=== PATIENT | female | born 1965 | race Caucasian/White ===

== ENCOUNTER 2017-02-05 10:03 | Day surgery (SDC) | payer BC ==
[~2017-02-05 10:03] MED LIST: ASPIRIN EC81 M1 PO; GLUCOPHAGE1000 MG PO; GLUCOPHAGE500 MG PO; INDERAL10 MG PO; MIRAPEX0.125 MG PO; MULTI-DAY VITAM1 TAB PO; NAPROSYN500 MG PO; NUTRISOURCE FI1 EACH PO; PROAIR HFA8.5 GM INH; PROBIOTIC1 EAC1 PO; PROTONIX40 MG PO; QVAR8.7 G1 INH; SYNTHROID200 MC1 PO; VITAMIN B-1000 MCG/M IM; VITAMIN B-121000 MCG PO; VITAMIN D31000 UNIT PO; XANAX0.5 MG PO; ZOCOR40 MG PO
[2017-02-05 12:26] LABS: BASOPHILS 0.2 % (0-2); EOSINOPHILS 1.6 % (0-7); HEMATOCRIT 45.3 % (36.0-48.0); HEMOGLOBIN 13.9 g/dL (12-16); IMMATURE GRANULOCYTES 0.3 % (0-5); LYMPHOCYTES 25.1 % (15-50); MCH 26.2 pg (26.0-34.0); MCHC 30.7 g/dL (31.0-37.0); MCV 85.3 fL (80.0-100.0); MEAN PLATELET VOLUME 12.9 fL (7.4-10.4); NEUTROPHILS 66.8 % (40-80); PLATELET COUNT 126 10x3/uL (130-400); RBC 5.31 10x6/uL (4.00-5.40); RDW 14.8 % (11.5-14.5); WBC 8.8 10x3/uL (4.8-10.8)
[2017-02-05 12:30] LABS: CALC OSMOLALITY 281 mosm/kg (275-300); CALCIUM 9.3 mg/dL (8.5-10.1); CARBON DIOXIDE 33.5 mmol/L (21.0-32.0); CHLORIDE - SERUM 102 mmol/L (98-107); CREATININE - SERUM 0.8 mg/dL (0.6-1.3); POTASSIUM - SERUM 4.3 mmol/L (3.5-5.1); SODIUM 140 mmol/L (136-145); UREA NITROGEN 10 mg/dL (7-18); eGFR NON AFRICAN AMERICAN 80 mL/min (90-120)
[2017-02-05 12:32] LABS: GLUCOSE 164 mg/dL (74-106)
== END 2017-02-05 15:15 | disposition home or self-care (01) ==
LOC: D.OPS 10:03
PROVIDERS: Anesthesiology
DX: I85.00 Esophageal varices without bleeding (principal); K74.60 Unspecified cirrhosis of liver; R12 Heartburn; E11.9 Type 2 diabetes mellitus without complications; K21.9 Gastro-esophageal reflux disease without esophagitis; Z01.812 Encounter for preprocedural laboratory examination; K44.9 Diaphragmatic hernia without obstruction or gangrene; K31.819 Angiodysplasia of stomach and duodenum without bleeding; K76.6 Portal hypertension; K31.89 Other diseases of stomach and duodenum

== ENCOUNTER 2017-04-06 05:27 | Day surgery (SDC) | payer BC ==
[~2017-04-06] VITALS: Ht 162.6 cm; Wt 129.5 kg
[2017-04-06] MEDS ORDERED: QVAR8.7 G1 INH (06:31)
[2017-04-06 06:43] VITALS: BP 102/47; Ht 162.6 cm; Wt 129.5 kg
[2017-04-06 07:25] LABS: BASOPHILS 0.4 % (0-2); HEMATOCRIT 41.7 % (36.0-48.0); IMMATURE GRANULOCYTES 0.1 % (0-5); LYMPHOCYTES 25.1 % (15-50); MCH 26.2 pg (26.0-34.0); MCHC 31.2 g/dL (31.0-37.0); MCV 83.9 fL (80.0-100.0); MONOCYTES 6.3 % (2-11); NEUTROPHILS 66.1 % (40-80); PLATELET COUNT 112 10x3/uL (130-400); RBC 4.97 10x6/uL (4.00-5.40); RDW 15.4 % (11.5-14.5); WBC 7.4 10x3/uL (4.8-10.8)
[2017-04-06 07:34] LABS: APTT 27.1 SECONDS (22.8-39.4); INR 1.01 (0.85-1.17); PROTIME 13.2 SECONDS (11.6-15.0)
[2017-04-06 07:37] LABS: CALC OSMOLALITY 276 mosm/kg (275-300); CALCIUM 8.6 mg/dL (8.5-10.1); CARBON DIOXIDE 28.9 mmol/L (21.0-32.0); CHLORIDE - SERUM 100 mmol/L (98-107); CREATININE - SERUM 0.8 mg/dL (0.6-1.3); GLUCOSE 248 mg/dL (74-106); POTASSIUM - SERUM 3.9 mmol/L (3.5-5.1); SODIUM 135 mmol/L (136-145); UREA NITROGEN 9 mg/dL (7-18); eGFR NON AFRICAN AMERICAN 80 mL/min (90-120)
--- NOTE | 2017-04-06 07:50 | NUR ---
0750 BANDED VARCIES X1.
--- NOTE | 2017-04-06 08:21 | NUR ---
0815-RECD FROM LAB. DROWSY. AROUSES EASILY. VOISE HERE TO REPORT FINDINGS.
--- NOTE | 2017-04-06 09:03 | NUR ---
0902-D/C HOME VIA WHEELCHAIR WITH SPOUSE.
--- NOTE | 2017-04-06 15:57 | OP ---
PATIENT NAME: SINAN GARCÍA MEDICAL RECORD: [id number] :65 LOCATION:[facility] ADMISSION DATE: SURGEON: MARS MALDONADO DO DATE OF OPERATION: 04/06/2017 PROCEDURE: EGD with variceal band ligation and biopsy. SCOPE: Olympus video gastroscope. MEDICATIONS: Propofol 240 mg IV per anesthesia. ESTIMATED BLOOD LOSS: Minimal. INDICATIONS FOR PROCEDURE: Surveillance of esophageal varices. FINDINGS: Informed consent was given. The patient was made comfortable with the above medication. After reaching an adequate level of sedation by slow IV push, the patient was placed on her left side. The gastroscope was then advanced under direct visualization through the mouth down to the second portion of the duodenum. The upper third of the esophagus appeared normal. In the middle and distal thirds of the esophagus, there were grade III segmented esophageal varices without bleeding stigmata. A single band ligation was performed of a column of varices. This maneuver was successful. There was a small sliding hiatal hernia present at the GE junction involving the cardia as well as some very mild LA class A reflux induced esophagitis at the GE junction. Within the stomach, there was diffuse evidence of mild portal hypertensive gastropathy. In the antrum, there were findings consistent with gastric antral vascular ectasia. There were no signs of bleeding. The endoscope was advanced beyond the pylorus where a subepithelial lesion was identified in the duodenal bulb. A biopsy was taken of this site. The second portion of the duodenum appeared normal. As described above, the endoscope was then withdrawn from the patient and fitted with a speed band system by [employer]. The single varix as described above was then banded times 1. Scope was then withdrawn from the patient completely. The patient tolerated the procedure well and there were no complications. IMPRESSION: 1. Grade III esophageal varices, band ligation performed times 1. 2. Mild LA class A reflux induced esophagitis. 3. Small sliding hiatal hernia involving the cardia. 4. Gastric antral vascular ectasia (GAVE). 5. Mild portal hypertensive gastropathy. 6. Subepithelial lesion in the bulb of the duodenum, biopsies taken. PLAN AND RECOMMENDATIONS: 1. Discharge home when recovery parameters are met. 2. Continue current medications. 3. Change diet to a liquid diet times 48 hours, followed by soft diet times 48 hours, then a regular diet. 4. Repeat EGD in 4-6 weeks for continued surveillance of varices with banding as indicated. 5. Monitor gait as well as labs. If ever needed in the future, APC could be performed for any bleeding. 6. Consider further workup of subepithelial duodenal lesion once varices are eradicated. OPERATIVE REPORT [id number] SINAN GARCÍA TRANSINT:[id number] Voice Confirmation ID: [id number] DOCUMENT ID: [id number] MARS MALDONADO DO at 1557 CC: [id number] DICTATION DATE: 04/06/17 0810 TALEND DEVELOPER: 04/06/17 0944 [facility] 04/06/17 [facility] [address] [place] [address]
== END 2017-04-06 09:02 | disposition home or self-care (01) ==
LOC: D.OPS 05:27
PROVIDERS: Anesthesiology
DX: I85.00 Esophageal varices without bleeding (principal); K44.9 Diaphragmatic hernia without obstruction or gangrene; K21.0 Gastro-esophageal reflux disease with esophagitis; K31.9 Disease of stomach and duodenum, unspecified; K31.819 Angiodysplasia of stomach and duodenum without bleeding; Z01.812 Encounter for preprocedural laboratory examination; E11.9 Type 2 diabetes mellitus without complications; F17.200 Nicotine dependence, unspecified, uncomplicated; J44.9 Chronic obstructive pulmonary disease, unspecified; G47.30 Sleep apnea, unspecified

== ENCOUNTER 2017-06-01 05:34 | Day surgery (SDC) | payer BC ==
[~2017-06-01] VITALS: Ht 162.6 cm; Wt 133.2 kg
[2017-06-01] MEDS ORDERED: PROPRANOLOL HCL20 MG PO (06:35)
[2017-06-01] MEDS ORDERED: PROTONIX40 MG PO (06:36)
[2017-06-01 06:40] VITALS: BP 142/76; Ht 162.6 cm; Wt 133.2 kg
[2017-06-01 06:48] LABS: HEMATOCRIT 41.2 % (36.0-48.0); HEMOGLOBIN 12.7 g/dL (12-16); MCH 25.9 pg (26.0-34.0); MCHC 30.8 g/dL (31.0-37.0); MCV 84.1 fL (80.0-100.0); RDW 15.1 % (11.5-14.5); WBC 7.7 10x3/uL (4.8-10.8)
[2017-06-01 06:52] LABS: PLATELET COUNT 84 10x3/uL (130-400)
[2017-06-01 06:58] LABS: CALC OSMOLALITY 279 mosm/kg (275-300); CALCIUM 8.6 mg/dL (8.5-10.1); CARBON DIOXIDE 31.9 mmol/L (21.0-32.0); CHLORIDE - SERUM 100 mmol/L (98-107); CREATININE - SERUM 0.8 mg/dL (0.6-1.3); GLUCOSE 241 mg/dL (74-106); POTASSIUM - SERUM 3.8 mmol/L (3.5-5.1); SODIUM 137 mmol/L (136-145); UREA NITROGEN 7 mg/dL (7-18); eGFR NON AFRICAN AMERICAN 80 mL/min (90-120)
--- NOTE | 2017-06-02 07:48 | OP ---
PATIENT NAME: SINAN GARCÍA MEDICAL RECORD: [id number] :65 LOCATION:[facility] ADMISSION DATE: SURGEON: MARS MALDONADO DO DATE OF OPERATION: 06/01/2017 PROCEDURE: EGD. INDICATIONS: Surveillance of esophageal varices. Last upper endoscopy was 04/06/2017 with 1 band placed at that time. SCOPE: Olympus video gastroscope. MEDICATIONS: Propofol 150 mg IV per anesthesia. ESTIMATED BLOOD LOSS: Minimal. COMPLICATIONS: None. FINDINGS: Informed consent was given. The patient was made comfortable with the above medication. After reaching an adequate level of sedation by slow IV push, the patient was placed on her left side. The endoscope was then advanced under direct visualization through the mouth to the second portion of the duodenum. The upper and middle thirds of the esophagus appeared normal. As you approached the distal third of the esophagus down to the GE junction, there was evidence of grade I to grade II esophageal varices without bleeding stigmata. A scar was seen from the last banding site performed in March. No banding or interventions regarding the varices were performed today. At the GE junction, there was some evidence of LA class A reflux-induced esophagitis. The endoscope was advanced through the GE junction into the stomach and retroflexed to view the cardia, where a small sliding hiatal hernia was present. Throughout the entire stomach, there were patchy areas of erythema and granularity as well as a few areas of friable mucosa consistent with gastritis. In the antrum of the stomach, there was streaky erythema consistent with gastric antral vascular ectasia. There was no active bleeding or oozing of blood. The endoscope was advanced beyond the pylorus into the duodenum where the bulb and second portion of the duodenum appeared normal other than a single subepithelial lesion at the apex of the duodenal bulb. The lesion itself measured approximately 1.2 cm in size and smooth and around. Biopsies were taken at the last examination in March of this site, but they only showed epithelial mucosa without abnormalities. The scope was then withdrawn from the patient. The patient tolerated the procedure well and there were no complications. IMPRESSION: 1. Grade I to II esophageal varices in the distal third of the esophagus. 2. LA class A reflux-induced esophagitis. 3. Sliding hiatal hernia. 4. Gastritis. 5. Gastric antral vascular ectasia without bleeding. 6. Subepithelial lesion in the duodenum. PLAN AND RECOMMENDATIONS: 1. Discharge home when recovery parameters are met. 2. Continue current medications. 3. Gastroesophageal reflux disease diet and reflux precautions. 4. Repeat upper endoscopy in 1 year for surveillance of varices as well as the OPERATIVE REPORT [id number] SINAN GARCÍA subepithelial lesion in the duodenum. If symptoms warrant, an evaluation will be performed sooner than 1 year. 5. Consider APC ablation to areas of the gastric antral vascular ectasia if indicated. TRANSINT:[id number] Voice Confirmation ID: [id number] DOCUMENT ID: [id number] MARS MALDONADO DO at 0748 CC: [id number] DICTATION DATE: 06/01/17801 HEEL STAINER: 06/01/17917 [facility] 06/01/17 [facility] [address] [place] [address]
== END 2017-06-01 08:55 | disposition home or self-care (01) ==
LOC: D.OPS 05:34
PROVIDERS: Anesthesiology
DX: I85.00 Esophageal varices without bleeding (principal); K21.0 Gastro-esophageal reflux disease with esophagitis; K44.9 Diaphragmatic hernia without obstruction or gangrene; K29.70 Gastritis, unspecified, without bleeding; K31.819 Angiodysplasia of stomach and duodenum without bleeding; K31.9 Disease of stomach and duodenum, unspecified; Z01.812 Encounter for preprocedural laboratory examination

== ENCOUNTER → 2017-06-22 10:52 | Outpatient (CLI) | payer BC ==
[2017-06-01 06:40] VITALS: BMI 50.4
[~2017-06-22 10:52] MED LIST changes: +PROPRANOLOL HCL20 MG PO
[2017-06-22 11:32] LABS: CREATININE - SERUM 0.9 mg/dL (0.6-1.3)
== END | disposition home or self-care (01) ==
LOC: D.LAB 10:52 → D.MRI 11:30
PROVIDERS: Family Medicine
DX: R51 Headache (principal)

== ENCOUNTER 2018-01-07 18:33 | Emergency (ER) | payer BC ==
[2017-06-01 06:40] VITALS: BMI 50.4
== END 2018-01-07 21:04 | disposition home or self-care (01) ==
LOC: D.ER 18:33
DX: S06.0X0A Concussion without loss of consciousness, initial encounter (principal); W20.8XXA Other cause of strike by thrown, projected or falling object, initial encounter; Y93.89 Activity, other specified; Y92.512 Supermarket, store or market as the place of occurrence of the external cause; F17.200 Nicotine dependence, unspecified, uncomplicated; K21.9 Gastro-esophageal reflux disease without esophagitis; E11.9 Type 2 diabetes mellitus without complications

== ENCOUNTER → 2018-03-02 12:55 | Outpatient (CLI) | payer BC ==
[~2018-03-02] VITALS: Ht 162.6 cm; Wt 128.8 kg
[2018-03-02 14:14] VITALS: Ht 162.6 cm; Wt 128.8 kg
== END | disposition home or self-care (01) ==
LOC: D.FANS 12:55
DX: E11.9 Type 2 diabetes mellitus without complications (principal)

== ENCOUNTER 2018-05-24 05:39 | Day surgery (SDC) | payer BC ==
[~2018-05-24] VITALS: Ht 162.6 cm; Wt 130.5 kg
--- NOTE | ~2018-05-24 | OP ---
PATIENT NAME: SINAN GARCÍA MEDICAL RECORD: [id number] :65 LOCATION:[facility] ADMISSION DATE: SURGEON: MARS MALDONADO DO DATE OF OPERATION: 05/24/2018 PROCEDURE: EGD with biopsies and banding of esophageal varices. SCOPE: Olympus video gastroscope. MEDICATIONS: Propofol 230 mg IV per anesthesia. ESTIMATED BLOOD LOSS: Minimal. COMPLICATIONS: None. FINDINGS: Informed consent was given. The patient was made comfortable with the above medication. After reaching an adequate level of sedation by slow IV push, the patient was placed on her left side. The endoscope was advanced under direct visualization through the mouth to the second portion of the duodenum. The upper and middle thirds of the esophagus appeared normal. In the distal third of the esophagus, there were grade II to III esophageal varices without bleeding stigmata. Due to their size, a single band was placed over the largest varix. This was done using a [employer] banding apparatus and the maneuver was successful. At the GE junction, there was evidence of LA class A reflux-induced esophagitis. The endoscope was advanced beyond the GE junction and retroflexed to view the cardia, where a small sliding hiatal hernia was present. Within the fundus and body of the stomach, there was a moderate amount of liquid with some solid food material as well. As much of this as possible was suctioned out of the stomach. The stomach itself had patchy erythema and granularity consistent with gastritis. In the prepyloric region, there were a few very superficial ulcerations, which were not bleeding. Random biopsies were taken to submit for histopathology and to rule out the presence of H. pylori. There was also a gastric nodule in the antrum, which was biopsied. Appearances were consistent with a reactive tissue from acid exposure. The endoscope was advanced beyond the pylorus into the duodenum where the previously identified subepithelial lesion is still present. It appears unchanged in size and characteristics. The endoscope was then withdrawn from the patient. It was noted upon withdrawal that the patient has a nodule versus a potential cystic lesion on her arytenoid cartilage. This may need follow up in the future. The endoscope was completely withdrawn from the patient. The patient tolerated the procedure well and there were no complications. IMPRESSION: 1. Grade II to grade III esophageal varices in the distal third of the esophagus status post banding times 1. 2. LA class A reflux-induced esophagitis. 3. Small sliding hiatal hernia. 4. Patchy gastritis with prepyloric ulcerations. 5. Gastric nodule, biopsies pending. It is felt to be reactive. 6. Subepithelial lesion in the duodenum. 7. Incidental finding of an arytenoid cartilage nodule. 8. Probable gastroparesis based on the findings of a significant amount of fluid and food in the stomach on today's endoscopy. PLAN AND RECOMMENDATIONS: OPERATIVE REPORT [id number] SINAN GARCÍA 1. Discharge home when recovery parameters are met. 2. Follow up biopsy specimen results. 3. Continue current medications including PPI daily and propranolol daily. 4. Full liquid diet times 24 hours followed by a soft diet times 48 hours, then regular based on the band that was placed on today's examination. 5. Consider gastric emptying scan to rule out gastroparesis. 6. Repeat EGD in 8-12 weeks to reevaluate gastric ulcers and consider rebanding if indicated. 7. May need a referral to ENT for evaluation of arytenoid nodule. TRANSINT:[id number] Voice Confirmation ID: [id number] DOCUMENT ID: [id number] MARS MALDONADO DO at 1351 CC: [id number] DICTATION DATE: 05/24/18811 TALENT SOURCER: 05/24/[address] [facility] 05/24/18 [facility] [address] [place] [address]
[2018-05-24 06:03] LABS: HEMATOCRIT 42.4 % (36.0-48.0); HEMOGLOBIN 13.5 g/dL (12-16); MCHC 31.8 g/dL (31.0-37.0); MCV 84.8 fL (80.0-100.0); MEAN PLATELET VOLUME 12.7 fL (7.4-10.4); RDW 15.4 % (11.5-14.5); WBC 6.8 10x3/uL (4.8-10.8)
[2018-05-24 06:22] LABS: APTT 27.1 SECONDS (22.8-39.4); CALC OSMOLALITY 282 mosm/kg (275-300); CALCIUM 8.6 mg/dL (8.5-10.1); CARBON DIOXIDE 30.3 mmol/L (21.0-32.0); CHLORIDE - SERUM 102 mmol/L (98-107); CREATININE - SERUM 0.7 mg/dL (0.6-1.3); GLUCOSE 198 mg/dL (74-106); INR 1.01 (0.85-1.17); POTASSIUM - SERUM 3.8 mmol/L (3.5-5.1); PROTIME 12.9 SECONDS (11.6-15.0); SODIUM 140 mmol/L (136-145); UREA NITROGEN 8 mg/dL (7-18); eGFR NON AFRICAN AMERICAN > 90 mL/min (90-120)
[2018-05-24] MEDS ORDERED: GLUCOPHAGE1000 MG PO (06:34)
[2018-05-24] MEDS ORDERED: GLUCOPHAGE500 MG (06:35)
[2018-05-24] MEDS ORDERED: PROTONIX40 MG PO (06:38)
[2018-05-24] MEDS ORDERED: FLUTICASONE PRO16 GM (06:39)
[2018-05-24] MEDS ORDERED: INDERAL10 MG PO (06:40)
[2018-05-24 06:49] VITALS: Ht 162.6 cm; Wt 130.5 kg
== END 2018-05-24 09:25 | disposition home or self-care (01) ==
LOC: D.OPS 05:39
PROVIDERS: Anesthesiology
DX: I85.00 Esophageal varices without bleeding (principal); K21.0 Gastro-esophageal reflux disease with esophagitis; K44.9 Diaphragmatic hernia without obstruction or gangrene; K29.50 Unspecified chronic gastritis without bleeding; K25.9 Gastric ulcer, unspecified as acute or chronic, without hemorrhage or perforation; K31.7 Polyp of stomach and duodenum; J38.7 Other diseases of larynx; Z01.812 Encounter for preprocedural laboratory examination

== ENCOUNTER → 2018-06-01 11:24 | Outpatient (CLI) | payer BC ==
[2018-05-24 06:49] VITALS: BMI 49.4
[~2018-06-01 11:24] MED LIST changes: +FLUTICASONE PRO16 GM; +GLUCOPHAGE500 MG
== END | disposition home or self-care (01) ==
LOC: D.NM 11:24
DX: R11.0 Nausea (principal)

== ENCOUNTER 2018-08-30 05:39 | Day surgery (SDC) | payer BC ==
[~2018-08-30] VITALS: Ht 162.6 cm; Wt 124.5 kg
--- NOTE | ~2018-08-30 | OP ---
PATIENT NAME: SINAN GARCÍA MEDICAL RECORD: [id number] :65 LOCATION:[facility] ADMISSION DATE: SURGEON: MARS MALDONADO DO DATE OF OPERATION: 08/30/2018 PROCEDURE: EGD with biopsies. INDICATIONS FOR PROCEDURE: History of esophageal varices as well as a history of gastric polyp with focal low-grade atypia. SCOPE: Olympus video gastroscope. MEDICATIONS: Propofol 180 mg IV per anesthesia. ESTIMATED BLOOD LOSS: Minimal. COMPLICATIONS: None. FINDINGS: Informed consent was given. The patient was made comfortable with the above medication. After reaching an adequate level of sedation by slow IV push, the patient was placed on her left side. The endoscope was advanced under direct visualization through the mouth to the second portion of the duodenum. The upper and middle thirds of the esophagus appeared normal. In the distal third of the esophagus, there was grade I to grade II esophageal varices without bleeding stigmata. No bands were placed on today's examination. At the GE junction, there was mild LA class A reflux-induced esophagitis. The endoscope was advanced beyond the GE junction into the stomach and retroflexed to view the cardia, where a small sliding hiatal hernia was present. Throughout the stomach, there was an atrophic-appearing mucosa and congestion and erythema consistent with portal hypertensive gastropathy. There were some patchy gastritis in the antrum and prepyloric regions. The previously identified nodule was again seen. This is still felt to be a reactive nodule. Cold forceps biopsies were again taken of this nodule to submit for histopathology. The endoscope was advanced beyond the pylorus into the duodenum. In the duodenal bulb, there was a subepithelial lesion measuring approximately 1.2-1.5 cm in size. Biopsies were taken of this nodule, but they will likely be superficial mucosal biopsies. The endoscope was advanced down to the second portion of the duodenum, which appeared normal. The endoscope was then withdrawn from the patient. The patient tolerated the procedure well and there were no complications. IMPRESSION: 1. Grade I to grade II esophageal varices without bleeding stigmata. 2. LA class A reflux-induced esophagitis. 3. Small sliding hiatal hernia. 4. Gastritis. 5. Portal hypertensive gastropathy. 6. Single gastric nodule located in the antrum, which measured approximately 8-10 mm in diameter. Biopsies taken with cold forceps. 7. Subepithelial nodule in the duodenum. Biopsies also taken of this lesion. PLAN AND RECOMMENDATIONS: 1. Discharge home when recovery parameters are met. 2. GERD diet and reflux precautions. 3. Continue current medications. OPERATIVE REPORT [id number] SINAN GARCÍA 4. Follow up biopsy results. 5. If low-grade atypia persist in the nodule biopsies, this may need to be resected with a snare in the future endoscopy. 6. Consider referral for EUS evaluation of duodenal subepithelial nodule. This will likely be followed endoscopically, one more procedure prior to referral if still indicated. 7. Repeat EGD in 6-12 months for variceal surveillance and reevaluation of gastric nodule and duodenal subepithelial nodule. TRANSINT:[id number] Voice Confirmation ID: [id number] DOCUMENT ID: [id number] MARS MALDONADO DO at 1426 CC: [id number] DICTATION DATE: 08/30/18 0758 PIPELINE SYSTEMS OPERATOR: 08/30/18 0814 [facility] 08/30/[address] [address]
[2018-08-30 06:01] LABS: BASOPHILS 0.3 % (0-2); EOSINOPHILS 1.8 % (0-7); HEMATOCRIT 39.9 % (36.0-48.0); HEMOGLOBIN 12.6 g/dL (12-16); IMMATURE GRANULOCYTES 0.1 % (0-5); LYMPHOCYTES 19.2 % (15-50); MCH 26.4 pg (26.0-34.0); MCHC 31.6 g/dL (31.0-37.0); MCV 83.6 fL (80.0-100.0); MEAN PLATELET VOLUME 12.3 fL (7.4-10.4); MONOCYTES 6.9 % (2-11); NEUTROPHILS 71.7 % (40-80); PLATELET COUNT 102 10x3/uL (130-400); RBC 4.77 10x6/uL (4.00-5.40); RDW 14.8 % (11.5-14.5)
[2018-08-30 06:15] LABS: CALC OSMOLALITY 281 mosm/kg (275-300); CALCIUM 8.6 mg/dL (8.5-10.1); CARBON DIOXIDE 31.4 mmol/L (21.0-32.0); CHLORIDE - SERUM 101 mmol/L (98-107); CREATININE - SERUM 0.7 mg/dL (0.6-1.3); POTASSIUM - SERUM 3.6 mmol/L (3.5-5.1); SODIUM 137 mmol/L (136-145); UREA NITROGEN 7 mg/dL (7-18); eGFR NON AFRICAN AMERICAN > 90 mL/min (90-120)
[2018-08-30 06:16] LABS: GLUCOSE 271 mg/dL (74-106)
[2018-08-30] MEDS ORDERED: JANUVIA100 MG PO (06:27)
[2018-08-30] MEDS ORDERED: CEFUROXIME500 MG PO (06:27)
[2018-08-30 06:36] VITALS: BP 114/78; Ht 162.6 cm; Wt 124.5 kg
== END 2018-08-30 08:53 | disposition home or self-care (01) ==
LOC: D.OPS 05:39
PROVIDERS: Anesthesiology
DX: K76.6 Portal hypertension (principal); K31.89 Other diseases of stomach and duodenum; I85.10 Secondary esophageal varices without bleeding; K21.0 Gastro-esophageal reflux disease with esophagitis; K44.9 Diaphragmatic hernia without obstruction or gangrene; K29.50 Unspecified chronic gastritis without bleeding; Z01.812 Encounter for preprocedural laboratory examination

== ENCOUNTER → 2019-07-06 08:23 | Outpatient (CLI) | payer BC ==
[2018-08-30 06:36] VITALS: BMI 47.1
[~2019-07-06 08:23] MED LIST changes: +BASAGLAR K100 UNIT/1 SC; +CEFUROXIME500 MG PO; +CHRONULAC30 ML PO; +CYANOCOBAL1000 MCG/4 SC; +CYCLOBENZAPRINE10 MG PO; +JANUVIA100 MG PO; +XIFAXAN550 MG PO
--- NOTE | 2019-07-08 12:08 | ST ---
PATIENT:SINAN GARCÍA MEDICAL RECORD: [id number] SEX: F LOCATION:[facility] ORDER #: ADMISSION DATE: 07/06/19 AGE OF PATIENT: 53 REFERRING PHYSICIAN: INTERPRETING PHYSICIAN: MELODY DE LEON MD DATE OF SERVICE: 07/06/2019 INDICATIONS: Angina, shortness of breath, hyperlipidemia. She was exercised on standard Lexiscan protocol with 27 mCi of sestamibi injected at peak stress, 9 mCi used previously for rest images. FINDINGS: Gated SPECT reveals preserved ejection fraction of 60%. However, there is decreased thickening and brightening throughout anterior segments. SPECT imaging: Cardiolite was used as myocardial perfusion agent. There is a large fixed perfusion defect anteriorly and apically compatible with previous anteroapical myocardial infarction. No evidence of reversible ischemia. The remaining segments are with homogeneous uptake at rest and stress. OVERALL IMPRESSION: This is an abnormal nuclear stress test suggestive of a previous anteroapical myocardial infarction, but no ongoing ischemic burden on the current exam with a preserved ejection fraction of 60%. TRANSINT:[id number] Voice Confirmation ID: [id number] DOCUMENT ID: [id number] MELODY DE LEON MD at 1208 CC: SHANNAN LAW [id number] DICTATION DATE: 07/07/19 1329 DAMPER FITTER: 07/08/[address] [facility] CLI 07/06/[address] [address]
== END | disposition home or self-care (01) ==
LOC: D.HCCARDIO 08:23
PROVIDERS: ATTEND Internal Medicine Interventional Cardiology
DX: I20.9 Angina pectoris, unspecified (principal); E78.5 Hyperlipidemia, unspecified; R06.00 Dyspnea, unspecified

== ENCOUNTER 2019-07-13 12:01 | Day surgery (SDC) | payer BC ==
[~2019-07-13] VITALS: Ht 162.6 cm; Wt 124.1 kg
[~2019-07-13 12:01] MED LIST changes: -BASAGLAR K100 UNIT/1 SC; -CHRONULAC30 ML PO; -CYANOCOBAL1000 MCG/4 SC; -CYCLOBENZAPRINE10 MG PO; -XIFAXAN550 MG PO
[2019-07-13 12:23] LABS: HEMATOCRIT 37.3 % (36.0-48.0); HEMOGLOBIN 11.3 g/dL (12-16); MCH 24.6 pg (26.0-34.0); MCHC 30.3 g/dL (31.0-37.0); MCV 81.1 fL (80.0-100.0); MEAN PLATELET VOLUME 11.2 fL (7.4-10.4); RBC 4.6 10x6/uL (4.00-5.40); RDW 16.5 % (11.5-14.5); WBC 6.3 10x3/uL (4.8-10.8)
[2019-07-13 12:36] LABS: CALC OSMOLALITY 281 mosm/kg (275-300); CALCIUM 8.4 mg/dL (8.5-10.1); CARBON DIOXIDE 32.9 mmol/L (21.0-32.0); CHLORIDE - SERUM 104 mmol/L (98-107); CREATININE - SERUM 0.7 mg/dL (0.6-1.3); SODIUM 142 mmol/L (136-145); UREA NITROGEN 7 mg/dL (7-18); eGFR NON AFRICAN AMERICAN > 90 mL/min (90-120)
[2019-07-13] MEDS ORDERED: XIFAXAN550 MG PO (12:37)
[2019-07-13] MEDS ORDERED: CYCLOBENZAPRINE10 MG PO (12:38)
[2019-07-13] MEDS ORDERED: CYANOCOBAL1000 MCG/4 SC (12:38)
[2019-07-13] MEDS ORDERED: BASAGLAR K100 UNIT/1 SC (12:39)
[2019-07-13] MEDS ORDERED: CHRONULAC30 ML PO (12:39)
[2019-07-13 12:44] VITALS: BP 148/55; Ht 162.6 cm; Wt 124.1 kg
[2019-07-13 12:44] LABS: GLUCOSE 123 mg/dL (74-106)
--- NOTE | 2019-07-13 14:24 | NUR ---
1424 WATER AND APPLE JUICE SERVED.
--- NOTE | 2019-07-13 14:26 | NUR ---
1429 DR. JOEL VELASQUEZ.
--- NOTE | 2019-07-13 15:07 | NUR ---
1505 RX OBTAINED. PT STATES SHE WILL TAKE A DOSE NOW PRIOR TO DISCHARGE.
--- NOTE | 2019-07-14 16:31 | OP ---
PATIENT NAME: SINAN GARCÍA MEDICAL RECORD: [id number] :65 LOCATION:[facility] ADMISSION DATE: SURGEON: MARS MALDONADO DO DATE OF OPERATION: 07/13/2019 PROCEDURE: EGD with variceal banding and biopsy. INDICATIONS FOR PROCEDURE: Epigastric pain, nausea, history of esophageal varices, and cirrhosis. SCOPE: Olympus video gastroscope. MEDICATIONS: Propofol 350 mg IV per anesthesia. ESTIMATED BLOOD LOSS: Minimal. COMPLICATIONS: None. FINDINGS: Informed consent was given. The patient was made comfortable with the above medication. After reaching an adequate level of sedation by slow IV push, the patient was placed on her left side. The endoscope was advanced under direct visualization through the mouth to the second portion of the duodenum. The esophagus where her usual varices which appeared to be slightly larger on this examination from previous. Today, they were grade III with some bleeding stigmata consisting of mccall red spots. At the GE junction, there was evidence of LA class A reflux-induced esophagitis. The endoscope was advanced beyond the GE junction into the stomach and retroflexed to view the cardia and fundus. There were no obvious fundal varices present. Throughout the entire stomach, there was some erythema and granularity consistent with mild gastritis. A single biopsy was taken from the antrum to submit for histopathology and to rule out the presence of H. pylori. The gastric nodule which is usually located in the antrum was again present. It measured approximately 8-10 mm in diameter. No biopsies were taken on this examination as this has been done previously and has been found to be benign. The endoscope was advanced beyond the pylorus and the duodenum. The mucosa of the duodenum appeared normal. The previously identified epithelial lesion appeared to be in the transition from the first to second portion of the duodenum and was difficult to fully examine on today's examination in comparison to the previous exam. Biopsies were taken in the last examination and were superficial to the obvious subepithelial tissue. No biopsies were taken today. The patient is coagulopathy related to her liver disease and this makes biopsies of all tissue difficult as she does bleed extremely easy. The endoscope was withdrawn from the patient. The [employer] speed band 7 shooter was placed over the endoscope and the endoscope with the bands were advanced back down into the distal esophagus through the mouth under direct visualization. Three bands were placed on the largest varices where stigmata were evident. The maneuver was successful. The endoscope was then withdrawn from the patient. The patient tolerated the procedure well and there were no immediate complications. IMPRESSION: 1. Grade III esophageal varices with bleeding stigmata consisting of mccall red spots. Three bands were placed during this examination. 2. LA class A reflux-induced esophagitis. 3. Diffuse mild gastritis. 4. Single gastric nodule located in the antrum, which has been previously OPERATIVE REPORT [id number] SINAN GARCÍA identified and biopsied and been found to be benign. 5. Subepithelial nodule was partially visualized in the duodenum. The surrounding tissue, did not appear to be dysplastic or malignant. PLAN AND RECOMMENDATIONS: 1. Discharge home when recovery parameters are met. 2. Follow up biopsy specimen results. 3. Repeat EGD in 4-6 weeks for continued banding of esophageal varices as indicated. 4. Continue GERD diet and reflux precautions. The patient will need to be on liquid diet times 48 hours followed by soft diet times 48 hours, then a regular diet. 5. Continue current medications. 6. We will reevaluate antral nodule and subepithelial duodenal nodule on this endoscopy. I have considered referral for consideration of [facility] in the past and this will be continued consideration. That being said, as discussed the above with the patient is high risk for both endoscopy due to her severe sleep apnea as well as her high risk of bleeding due to coagulopathy and cirrhosis. This risk would also be even higher with endoscopic ultrasound when visualization is limited due to the ultrasound mode being used. TRANSINT:[id number] Voice Confirmation ID: [id number] DOCUMENT ID: [id number] MARS MALDONADO DO at 1631 CC: [id number] DICTATION DATE: 07/13/19 1410 RECOVERY ADVOCATE: 07/13/19 2253 [facility] 07/13/19 [address] [place] [address]
== END 2019-07-13 15:30 | disposition home or self-care (01) ==
LOC: D.OPS 12:01
PROVIDERS: Anesthesiology; ATTEND Internal Medicine Gastroenterology
DX: I85.01 Esophageal varices with bleeding (principal); K74.60 Unspecified cirrhosis of liver; K21.0 Gastro-esophageal reflux disease with esophagitis; K29.70 Gastritis, unspecified, without bleeding

== ENCOUNTER 2019-09-19 12:15 | Day surgery (SDC) | payer BC ==
[~2019-09-19] VITALS: Ht 162.6 cm; Wt 126.4 kg
[2019-09-19 12:14] LABS: HEMATOCRIT 46.6 % (36.0-48.0); HEMOGLOBIN 15.3 g/dL (12-16); MCH 29.5 pg (26.0-34.0); MCHC 32.8 g/dL (31.0-37.0); MCV 89.8 fL (80.0-100.0); MEAN PLATELET VOLUME 11.2 fL (7.4-10.4); RBC 5.19 10x6/uL (4.00-5.40); RDW 18.3 % (11.5-14.5); WBC 7.3 10x3/uL (4.8-10.8)
[~2019-09-19 12:15] MED LIST changes: +BASAGLAR K100 UNIT/1 SC; +CHRONULAC30 ML PO; +CYANOCOBAL1000 MCG/4 SC; +CYCLOBENZAPRINE10 MG PO; +XIFAXAN550 MG PO
[2019-09-19 12:27] LABS: HCG SERUM NEGATIVE (NEGATIVE)
[2019-09-19 12:29] LABS: CALC OSMOLALITY 279 mosm/kg (275-300); CALCIUM 9.2 mg/dL (8.5-10.1); CARBON DIOXIDE 30.5 mmol/L (21.0-32.0); CHLORIDE - SERUM 103 mmol/L (98-107); CREATININE - SERUM 0.7 mg/dL (0.6-1.3); GLUCOSE 139 mg/dL (74-106); POTASSIUM - SERUM 4.4 mmol/L (3.5-5.1); SODIUM 140 mmol/L (136-145); UREA NITROGEN 9 mg/dL (7-18); eGFR NON AFRICAN AMERICAN > 90 mL/min (90-120)
[2019-09-19 12:49] VITALS: BP 112/71; Ht 162.6 cm; Wt 126.4 kg
--- NOTE | 2019-09-19 14:17 | NUR ---
PT DC INSTRUCTIONS REVIEWED AT THIS TIME, PT VERBALIZES UNDERSTANDING. PT IV REMOVED AT THIS TIME, INTACT, NO REDNESS OF SWELLING NOTED AT SITE.
--- NOTE | 2019-09-19 14:19 | NUR ---
PT LEAVING OPS AT THIS TIME VIA WC, NAD NOTED.
--- NOTE | 2019-09-20 08:53 | OP ---
PATIENT NAME: SINAN GARCÍA MEDICAL RECORD: [id number] :65 LOCATION:[facility] ADMISSION DATE: SURGEON: MARS MALDONADO DO DATE OF OPERATION: 09/19/2019 PROCEDURE: EGD for surveillance of esophageal varices. The patient's last EGD was performed on 07/13/2019. At that time, three bands were placed. SCOPE: Olympus video gastroscope. MEDICATIONS: Propofol 150 mg IV per anesthesia. ESTIMATED BLOOD LOSS: None. COMPLICATIONS: None. FINDINGS: Informed consent was given. The patient was made comfortable with the above medication. After reaching an adequate level of sedation by slow IV push, the patient was placed on her left side. The endoscope was advanced under direct visualization through the mouth to the second portion of the duodenum. In the esophagus, there were grade II esophageal varices which appeared improved from previous examination when bands were placed. There were no bleeding stigmata present. There was evidence of previous banding. No bands were placed on today's examination. At the GE junction, there was evidence of LA class A reflux-induced esophagitis. The endoscope was advanced beyond the GE junction into the stomach and retroflexed to view the cardia and fundus. There were no obvious fundal varices present. Throughout the entire stomach, there was some erythema and granularity consistent with mild gastritis. There was a single gastric nodule located in the antrum, which has been identified on previous examinations. It measured approximately 8-10 mm in diameter and appeared unchanged from previous exams. No biopsies were taken of the antrum or of the nodule today as they have previously been taken and found to be benign. The endoscope was advanced beyond the pylorus into the duodenum. The mucosa of the duodenum appeared normal. The previously identified subepithelial lesion was present and located in the transition from the first to second portion of the duodenum. Biopsies had been taken in the past, but were too superficial to obtain any subepithelial tissue. No biopsies were taken on today's examination. The endoscope was withdrawn from the patient. The patient tolerated the procedure well and there were no immediate complications. IMPRESSION: 1. Grade II esophageal varices without bleeding stigmata. No bands were placed on today's examination. 2. LA class A reflux-induced esophagitis. 3. Diffuse mild gastritis. 4. Single gastric nodule located in the antrum, which was previously been biopsied and found to be benign. It appears unchanged from previous examinations. 5. A single subepithelial nodule located in the duodenum in the transition from the first to second portion. Mucosal biopsies have been taken previously and have shown benign tissue. PLAN AND RECOMMENDATIONS: 1. Discharge home when recovery parameters are met. 2. Continue current diet. OPERATIVE REPORT [id number] SINAN GARCÍA 3. Continue current medications. 4. Maintain follow up as scheduled in the outpatient GI clinic. 5. We will need a repeat EGD in 1 year for esophageal varices surveillance. 6. The patient's MELD score is currently 7. 7. We will continue to monitor the overall liver condition and may refer to [facility] hepatology if indicated in the future. TRANSINT:[id number] Voice Confirmation ID: [id number] DOCUMENT ID: [id number] MARS MALDONADO DO at 0853 CC: [id number] DICTATION DATE: 09/19/19 1339 ASSISTANT PROFESSOR OF [employer]INAL JUSTICE: 09/19/19 1612 [facility] 09/19/19 [id number] [place] [address]
== END 2019-09-19 14:20 | disposition home or self-care (01) ==
LOC: D.OPS 12:15
PROVIDERS: Anesthesiology; ATTEND Internal Medicine Gastroenterology
DX: K74.60 Unspecified cirrhosis of liver (principal); K57.30 Diverticulosis of large intestine without perforation or abscess without bleeding; Z86.010 Personal history of colon polyps; K76.0 Fatty (change of) liver, not elsewhere classified; R11.0 Nausea; R10.13 Epigastric pain; R19.7 Diarrhea, unspecified

== ENCOUNTER → 2020-02-16 12:13 | Outpatient (CLI) | payer BC ==
[2019-09-19 12:49] VITALS: BMI 47.8
== END | disposition home or self-care (01) ==
LOC: D.HCCECHO 12:13
PROVIDERS: ATTEND Internal Medicine Cardiovascular Disease
DX: I10 Essential (primary) hypertension (principal)

== ENCOUNTER 2020-12-07 10:24 | Day surgery (SDC) | payer OTHER ==
[~2020-12-07] VITALS: Ht 162.6 cm; Wt 125.5 kg
--- NOTE | ~2020-12-07 | OP ---
PATIENT NAME: SINAN GARCÍA MEDICAL RECORD: [id number] :65 LOCATION:[facility] ADMISSION DATE: SURGEON: ERIKA CREWS MD DATE OF OPERATION: 12/07/2020 PROCEDURE: Upper endoscopy. PREOPERATIVE DIAGNOSIS: History of cirrhosis with previous banding of esophageal varices. Today, she is here for surveillance of varices. MEDICATIONS: Propofol per anesthesia. Upper endoscopy was performed. The endoscope was advanced through the mouth and advanced to the second part of the duodenum. The proximal and mid esophagus were normal. In the distal esophagus was a grade III varix. This was banded with 1 band placed successfully. The remainder of the esophagus was normal. There were other varices; however, these were small grade I and grade II. In the gastric body was erythema consistent with gastritis. Random gastric biopsies were taken. In the duodenal bulb was a large 3 cm polyp. This could not be removed through the scope due to size and vascularity. A small biopsy was taken at the edge of this polyp. FINAL DIAGNOSES: 1. Grade III esophageal varix, status post banding times 1. 2. Evidence of previous smaller esophageal varices, gastritis, and large duodenal polyp. PLAN: Check histology results. Continue GI followup. I will schedule this patient for EUS at [facility] to evaluate for possible resection of this large duodenal polyp. TRANSINT:[id number] Voice Confirmation ID: [id number] DOCUMENT ID: [id number] ERIKA CREWS MD CC: [id number] DICTATION DATE: 12/07/20 1250 SAUSAGE CANNER: 12/07/20 2318 [facility] 12/07/20 [place] [id number] [place] [id number]
[2020-12-07 11:01] LABS: BASOPHILS 0.4 % (0-2); EOSINOPHILS 2.5 % (0-7); HEMATOCRIT 45.5 % (36.0-48.0); HEMOGLOBIN 14.9 g/dL (12-16); IMMATURE GRANULOCYTES 0.1 % (0-5); LYMPHOCYTE ABS# 1.62 10x3/uL (1.18-3.74); MCH 28.9 pg (26.0-34.0); MCHC 32.7 g/dL (31.0-37.0); MCV 88.2 fL (80.0-100.0); MEAN PLATELET VOLUME 12.1 fL (7.4-10.4); MONOCYTES 6.9 % (2-11); NEUTROPHIL ABS# 6.05 10x3/uL (1.56-6.13); NEUTROPHILS 71.1 % (40-80); PLATELET COUNT 105 10x3/uL (130-400); RBC 5.16 10x6/uL (4.00-5.40); RDW 14.3 % (11.5-14.5); WBC 8.5 10x3/uL (4.8-10.8)
[2020-12-07 11:03] LABS: APTT 28.3 SECONDS (22.8-39.4); INR 1.16 (0.85-1.17); PROTIME 13.7 SECONDS (11.6-15.0)
[2020-12-07 11:05] LABS: ALBUMIN 3.1 g/dL (3.4-5.0); ALKALINE PHOSPHATASE 148 U/L (30-120); ALT (SGPT) 30 U/L (10-68); BILIRUBIN - TOTAL 1.55 mg/dL (0.2-1.3); CALC OSMOLALITY 278 mosm/kg (275-300); CALCIUM 9.2 mg/dL (8.5-10.1); CARBON DIOXIDE 34.2 mmol/L (21.0-32.0); CHLORIDE - SERUM 101 mmol/L (98-107); CREATININE - SERUM 0.8 mg/dL (0.6-1.3); GLUCOSE 183 mg/dL (74-106); POTASSIUM - SERUM 4.3 mmol/L (3.5-5.1); PROTEIN - SERUM 7.3 g/dL (6.4-8.2); SODIUM 138 mmol/L (136-145); UREA NITROGEN 6 mg/dL (7-18); eGFR NON AFRICAN AMERICAN 79 mL/min (90-120)
[2020-12-07 11:27] VITALS: BP 138/89; Ht 162.6 cm; Wt 125.5 kg
--- NOTE | 2020-12-07 13:26 | NUR ---
DC INSTRUCTIONS GIVEN TO PT. STATES UNDERSTANDING. DC'D IV CATH FULLY INTACT. WILL DC SHORTLY.
--- NOTE | 2020-12-07 13:29 | NUR ---
PT LEFT UNIT VIA WC AT 1340
== END 2020-12-07 13:40 | disposition home or self-care (01) ==
LOC: D.OPS 10:24
PROVIDERS: Anesthesiology; ATTEND Internal Medicine Gastroenterology
DX: I85.00 Esophageal varices without bleeding (principal); R11.0 Nausea; K31.7 Polyp of stomach and duodenum; K44.9 Diaphragmatic hernia without obstruction or gangrene; K74.00 Hepatic fibrosis, unspecified; K76.0 Fatty (change of) liver, not elsewhere classified; Z86.010 Personal history of colon polyps; K29.70 Gastritis, unspecified, without bleeding

== ENCOUNTER 2021-01-11 10:12 | Day surgery (SDC) | payer OTHER ==
[~2021-01-11] VITALS: Ht 162.6 cm; Wt 133.2 kg
--- NOTE | ~2021-01-11 | OP ---
PATIENT NAME: SINAN GARCÍA MEDICAL RECORD: [id number] :65 LOCATION:[facility] ADMISSION DATE: SURGEON: ERIKA CREWS MD DATE OF OPERATION: 01/11/2021 PREOPERATIVE DIAGNOSIS: History of colon polyps. MEDICATION: Propofol per anesthesia. Colonoscopy was performed. The colonoscope was inserted through the rectum and advanced to the cecum, identified by the ileocecal valve and the appendiceal orifice. There were multiple polyps. In the ascending colon polyp was a 5 mm polyp, this was removed with a combination of hot snare polypectomy and cold biopsy forceps. In the sigmoid colon were 2 polyps, these were removed with hot snare polypectomy and cold biopsy forceps respectively. In the sigmoid colon was a small patchy erythema. This was biopsied. There were also a few sigmoid diverticula. The patient tolerated the procedure well. There were no immediate complications. FINAL DIAGNOSES: Multiple colon polyps that were removed as outlined above, a few sigmoid diverticula. PLAN: Check histology results, advance diet. Return to GI office. TRANSINT:[id number] Voice Confirmation ID: [id number] DOCUMENT ID: [id number] ERIKA CREWS MD CC: [id number] DICTATION DATE: 01/11/21 1525 RAILW[address] SHUNTER: 01/12/21 0007 [facility] 01/11/21 [place] [id number] [place] [address]
[2021-01-11 10:42] LABS: BASOPHILS 0.3 % (0-2); EOSINOPHILS 1.7 % (0-7); HEMATOCRIT 47.8 % (36.0-48.0); HEMOGLOBIN 15.6 g/dL (12-16); IMMATURE GRANULOCYTES 0.1 % (0-5); LYMPHOCYTE ABS# 1.21 10x3/uL (1.18-3.74); MCHC 32.6 g/dL (31.0-37.0); MCV 88.8 fL (80.0-100.0); MEAN PLATELET VOLUME 11.9 fL (7.4-10.4); NEUTROPHIL ABS# 5.64 10x3/uL (1.56-6.13); NEUTROPHILS 74.9 % (40-80); PLATELET COUNT 100 10x3/uL (130-400); RBC 5.38 10x6/uL (4.00-5.40); RDW 14.4 % (11.5-14.5); WBC 7.5 10x3/uL (4.8-10.8)
[2021-01-11 10:51] LABS: CALC OSMOLALITY 281 mosm/kg (275-300); CALCIUM 9.1 mg/dL (8.5-10.1); CARBON DIOXIDE 32.7 mmol/L (21.0-32.0); CHLORIDE - SERUM 101 mmol/L (98-107); CREATININE - SERUM 0.7 mg/dL (0.6-1.3); GLUCOSE 214 mg/dL (74-106); SODIUM 139 mmol/L (136-145); UREA NITROGEN 6 mg/dL (7-18); eGFR NON AFRICAN AMERICAN > 90 mL/min (90-120)
[2021-01-11 13:04] VITALS: Ht 162.6 cm; Wt 133.2 kg
== END 2021-01-11 16:55 | disposition home or self-care (01) ==
LOC: D.OPS 10:12
PROVIDERS: Anesthesiology; ATTEND Internal Medicine Gastroenterology
DX: Z86.010 Personal history of colon polyps (principal); Z12.11 Encounter for screening for malignant neoplasm of colon; K63.5 Polyp of colon; K57.30 Diverticulosis of large intestine without perforation or abscess without bleeding; K74.60 Unspecified cirrhosis of liver; I85.00 Esophageal varices without bleeding; K76.0 Fatty (change of) liver, not elsewhere classified; R11.0 Nausea; K44.9 Diaphragmatic hernia without obstruction or gangrene